=== PATIENT | male | born 1980 | race Caucasian/White ===

== ENCOUNTER 2017-04-22 07:03 | Emergency (ER) | payer BC, OTHER ==
[2017-04-22 07:20] VITALS: BP 127/79; PULSE 97; TEMP 98.3; BMI 49.4
[2017-04-22] MEDS ORDERED: IBUPROFEN 600 MG TABLET (FP) PO ONE ×2 (07:32→07:41)
[2017-04-22] MEDS ORDERED: DIPHTH,PERTUSS(ACELL),TET 0.5 ML DISP.SYRIN IM ONE (07:43)
--- NOTE | 2017-04-22 07:49 | PDOC ---
History of Present Illness - General Chief Complaint: Injury Stated Complaint: LT ANKLE PAIN Time Seen by Provider: 04/22/17 07:09 - History of Present Illness Initial Comments: 04/22/17 07:43 36 M with h/o HTN presents to ER with L ankle pain. Pt states that he tripped and turned his ankle yesterday while stepping off a curb. He denies hearing a pop or crack. He states that he landed onto his knees. Denies headstrike/LOC. Pt was able to get up immediately afterwards and ambulate to the bus. He elevated it and applied ice last night and took 600 mg motrin. This morning, pt noticed the swelling was worse. He was still able to ambulate but with some pain. Denies pain or swelling in his knees. Past History - Past Medical History Allergies/Adverse Reactions: Allergies Allergy/AdvReac Type Severity Reaction Status Date / Time Penicillins Allergy Verified 04/22/17 07:08 Home Medications: Ambulatory Orders Albuterol Sulfate [Proair Respiclick] 90 mcg IH PRN PRN 04/22/17 Esomeprazole Magnesium [Nexium 24Hr] 20 mg PO PRN PRN 04/22/17 Ibuprofen 800 mg PO ONCE 04/22/17 Lisinopril 10 mg PO DAILY 04/22/17 Asthma: Yes GI Disorders: Yes (GERD) HTN: Yes - Suicide/Smoking/Psychosocial Hx Smoking History: Never smoked Review of Systems - Review of Systems Comments:: 04/22/17 07:45 "GENERAL/CONSTITUTIONAL: No fever or chills. No weakness. HEAD, EYES, EARS, NOSE AND THROAT: No change in vision. No ear pain or discharge. No sore throat. CARDIOVASCULAR: No chest pain or shortness of breath. RESPIRATORY: No cough, wheezing, or hemoptysis. GASTROINTESTINAL: No nausea, vomiting, diarrhea or constipation. GENITOURINARY: No dysuria, frequency, or change in urination. MUSCULOSKELETAL: L ankle swelling and pain SKIN: No rash NEUROLOGIC: No headache, vertigo, loss of consciousness, or change in strength/ sensation. ENDOCRINE: No increased thirst. No abnormal weight change. HEMATOLOGIC/LYMPHATIC: No anemia, easy bleeding, or history of blood clots. ALLERGIC/IMMUNOLOGIC: No hives or skin allergy. " *Physical Exam - Vital Signs Last Vital Signs Temp Pulse Resp BP Pulse Ox 98.3 F 97 H 16 127/79 99 04/22/17 07:10 04/22/17 07:10 04/22/17 07:10 04/22/17 07:10 04/22/17 07:10 - Physical Exam Comments: 04/22/17 07:46 "GENERAL: Awake, alert, and fully oriented, in no acute distress HEAD: No signs of trauma EYES: PERRLA, EOMI, sclera anicteric, conjunctiva clear ENT: Auricles normal inspection, hearing grossly normal, nares patent, oropharynx clear without exudates. Moist mucosa NECK: Nontender, no stepoffs, Normal ROM, supple, no lymphadenopathy, JVD, or masses LUNGS: Breath sounds equal, clear to auscultation bilaterally. No wheezes, and no crackles HEART: Regular rate and rhythm, normal S1 and S2, no murmurs, rubs or gallops ABDOMEN: Soft, nontender, normoactive bowel sounds. No guarding, no rebound. No masses EXTREMITIES: b/l knees with superficial abrasions, no patellar tenderness or fibular head tenderness on either knee L ankle with mild joint effusion, no posterior tenderness of either lateral or medial malleolus, no tenderness of navicular or base of 5th metatarsal NEUROLOGICAL: Cranial nerves II through XII intact. 5/5 strength and sensation in all extremities, Normal speech, normal gait SKIN: Warm, Dry, normal turgor, no rashes or lesions noted. " ED Treatment Course - RADIOLOGY Radiology Studies Ordered: Category Date Time Status ANKLE & FOOT-LEFT* [RAD] Stat Radiology 04/22/17 07:32 Ordered Medical Decision Making - Medical Decision Making 04/22/17 07:49 36 M with L ankle pain s/p trip and fall. Low suspicion for ankle fx. Pt with mild effusion and pain but no significant tenderness. Pt able to bear weight and walk. Likely grade 1 ankle sprain. Pt also with bilateral knee abrasions but no deformity, effusion, or tenderness. No indication for XR of either knee. - L ankle xr - Tdap - Motrin 04/22/17 09:26 XR negative. Pt ambulatory with normal gait. Will DC home with ortho f/u. *DC/Admit/Observation/Transfer Diagnosis at time of Disposition: Ankle sprain - Discharge Dispostion Disposition: HOME Condition at time of disposition: Stable - Referrals Referrals: Yuan Harding [Primary Care Provider] - Hermelindo Jaramillo MD [Staff Physician] - - Patient Instructions Printed Discharge Instructions: DI for Ankle Sprain Additional Instructions: Keep your ankle elevated as much as possible, apply ice, and take ibuprofen as needed for pain. If you continue to have pain after 48 hours, call your orthopedic surgeon for further evaluation. You may need an MRI to evaluate for injury to your ligaments. - Post Discharge Activity Forms/Work/School Notes: Back to Work - Attestations Physician Attestion: 04/22/17 09:29 I, Dr. Simon Li MD, attest that this document has been prepared under my direction and personally reviewed by me in its entirety. I further attest, that it accurately reflects all work, treatment, procedures and medical decision -making performed by me.
== END 2017-04-22 09:35 | disposition home or self-care (01) ==
LOC: FER 07:03
PROC: 3E0234Z Introduction of Serum, Toxoid and Vaccine into Muscle, Percutaneous Approach (ICD-10-PCS; principal; 2017-04-22)
DX: S93.402A Sprain of unspecified ligament of left ankle, initial encounter (principal); X58.XXXA Exposure to other specified factors, initial encounter; Y93.89 Activity, other specified; Y92.410 Unspecified street and highway as the place of occurrence of the external cause
CPT/HCPCS: 73610-TC-LT; 73630-TC-LT; 90715; 99281-25